=== PATIENT | female | born 1950 | race Caucasian/White ===

== ENCOUNTER 2022-08-12 09:01 | Outpatient (CLI) | payer MEDICARE, BC ==
--- NOTE | 2022-08-12 15:21 | XRAY Report ---
PROCEDURE: Foot 3 View BILAT INDICATIONS: PAIN IN LEFT FOOT TECHNIQUE: 3 views of the foot were acquired. COMPARISON: None FINDINGS: Bones: No fractures or dislocations. No suspicious bony lesions. There is moderate scattered IP de generative narrowing. Osteophytes are present. Mild midfoot degenerative change. Soft tissues: No tibiotalar joint effusion. Achilles tendon appears normal. IMPRESSION: Scattered IP and midfoot arthritic changes. Reviewed by: Kalani Cummins MD on 08/12/2022 3:19 PM PDT Approved by: Kalani Cummins MD on 08/12/2022 3:19 PM PDT Station ID: [id number]
== END 2022-08-12 09:02 | disposition home or self-care (01) ==
LOC: DI.S 09:01
PROVIDERS: ATTEND Nurse Practitioner Family
DX: M19.072 Primary osteoarthritis, left ankle and foot (principal)

== ENCOUNTER 2023-02-17 13:16 | Outpatient (CLI) | payer MEDICARE, BC ==
--- NOTE | 2023-02-17 15:48 | Ultrasound Report ---
PROCEDURE: Pelvic w/Transvaginal INDICATIONS: OVARIAN CYST TECHNIQUE: Real-time scanning was performed of the pelvic organs, with image documentation. Additional endovagi nal scanning was necessary due to incomplete visualization of the adnexal and endometrial structures by transabdominal scanning. COMPARISON: None. FINDINGS: Uterus: Uterus is anteverted and normal in size at 5.2 x 4.0 x 2.6 cm. The myometrium is homogeneou s. The endometrium measures 3.9 mm in combined thickness. Fluid is noted in the endometrial canal. Complex appearance of nabothian cyst is present with calcifications. Ovaries: The right ovary measures 6.2 x 2.9 x 3.8 cm, with a calculated ovarian volume of 34.4 cc. The left ovary measures 1.9 x 1.6 x 1.1 cm, with a calculated ovarian volume of 1.8 cc. There several foci of decreased echogenicity within the right ovary largest measuring 4.1 x 3.5 x 3.3 cm. There is no increased vascularity. Internal septations are noted. Other: No pathologic free abdominal or pelvic fluid. IMPRESSION: Endometrial canal fluid as above. This is overall nonspecific. However, given patient's age, clinical correlation is recommended. Multiple ovarian cysts on the right. Some appearing septated. While these could represent simple cyst , given age, short interval imaging follow-up is recommended. However, it is noted according to histo ry, an upcoming hysterectomy is scheduled. Reviewed by: Kalani Cummins MD on 02/17/2023 3:47 PM PDT Approved by: Kalani Cummins MD on 02/17/2023 3:47 PM PDT Station ID: [id number]
== END 2023-02-17 13:17 | disposition home or self-care (01) ==
LOC: DI 13:16
PROVIDERS: ATTEND Obstetrics & Gynecology
DX: Z01.818 Encounter for other preprocedural examination (principal); N83.201 Unspecified ovarian cyst, right side; N88.8 Other specified noninflammatory disorders of cervix uteri
CPT/HCPCS: 93005

== ENCOUNTER 2023-02-17 13:20 | Outpatient (CLI) | payer MEDICARE, BC | END 2023-02-17 13:21 | disposition home or self-care (01) | LOC: RT 13:20 | PROVIDERS: ATTEND Obstetrics & Gynecology | DX: Z53.9 Procedure and treatment not carried out, unspecified reason (principal) ==

== ENCOUNTER 2023-08-17 11:31 | Outpatient (CLI) | payer MEDICARE, BC ==
[2023-08-17 12:27] LABS: CREATININE 0.5 mg/dL (0.6-1.3)
[2023-08-17 15:13] LABS: CALCIUM 9.3 mg/dL (8.5-10.3)
== END 2023-08-17 11:32 | disposition home or self-care (01) ==
LOC: LAB 11:31
PROVIDERS: ATTEND Surgery
DX: C19 Malignant neoplasm of rectosigmoid junction (principal); R97.0 Elevated carcinoembryonic antigen [CEA]
CPT/HCPCS: 36415; 80048; 82378; 82565; 83540; 84466

== ENCOUNTER 2023-08-21 08:57 | Outpatient (CLI) | payer MEDICARE, BC ==
[2023-08-21 09:10] LABS: BASOPHILS % (AUTO) 0.6 %; EOSINOPHILS # (AUTO) 0.1 10^3/uL (0.0-0.7); EOSINOPHILS % (AUTO) 2.4 %; HGB - HEMOGLOBIN 13.6 g/dL (12.0-16.0); LYMPHOCYTES # (AUTO) 1.9 10^3/uL (1.5-3.5); MEAN CORPUSCULAR HEMOGLOBIN 30.8 pg (27.0-31.0); MEAN CORPUSCULAR HGB CONC 33.2 g/dL (32.0-36.0); MONOCYTES # (AUTO) 0.3 10^3/uL (0.0-1.0); MONOCYTES % (AUTO) 5.5 %; NEUTROPHILS # (AUTO) 2.6 10^3/uL (1.5-6.6); NEUTROPHILS % (AUTO) 52.1 %; PLT - PLATELET COUNT 273 10^3/uL (130-450); RED BLOOD COUNT 4.41 10^6/uL (4.20-5.40); RED CELL DISTRIBUTION WIDTH 13.3 % (12.0-15.0); WHITE BLOOD COUNT 4.9 x10^3/uL (4.8-10.8)
== END 2023-08-21 08:58 | disposition home or self-care (01) ==
LOC: LAB 08:57
PROVIDERS: ATTEND Surgery
DX: C18.7 Malignant neoplasm of sigmoid colon (principal)
CPT/HCPCS: 36415; 85025

== ENCOUNTER → 2024-01-16 | Outpatient (CLI) | payer MEDICARE, BC | LOC: PC 08:00 | PROVIDERS: ATTEND Nurse Practitioner Adult Health | DX: Z51.5 Encounter for palliative care (principal); G43.909 Migraine, unspecified, not intractable, without status migrainosus; M62.81 Muscle weakness (generalized); R63.4 Abnormal weight loss; R63.0 Anorexia; R43.9 Unspecified disturbances of smell and taste; R10.9 Unspecified abdominal pain; R14.0 Abdominal distension (gaseous); R11.0 Nausea; R14.3 Flatulence; R41.89 Other symptoms and signs involving cognitive functions and awareness; R53.83 Other fatigue; K59.03 Drug induced constipation; K52.1 Toxic gastroenteritis and colitis; T45.1X5A Adverse effect of antineoplastic and immunosuppressive drugs, initial encounter; C18.7 Malignant neoplasm of sigmoid colon; Z79.899 Other long term (current) drug therapy | CPT/HCPCS: 99215 ==

== ENCOUNTER 2024-02-11 08:00 | Outpatient (CLI) | payer MEDICARE, BC | END 2024-02-11 23:59 | disposition home or self-care (01) | LOC: PC 08:00 | PROVIDERS: ATTEND Nurse Practitioner Adult Health | DX: Z51.5 Encounter for palliative care (principal); C18.7 Malignant neoplasm of sigmoid colon; G43.909 Migraine, unspecified, not intractable, without status migrainosus | CPT/HCPCS: 99426 ==

== ENCOUNTER 2024-03-12 08:00 | Outpatient (CLI) | payer MEDICARE, BC | END 2024-03-12 23:59 | disposition home or self-care (01) | LOC: PC 08:00 | PROVIDERS: ATTEND Nurse Practitioner Adult Health | DX: Z51.5 Encounter for palliative care (principal); C18.7 Malignant neoplasm of sigmoid colon; G43.909 Migraine, unspecified, not intractable, without status migrainosus | CPT/HCPCS: 99426 ==

== ENCOUNTER 2024-03-22 10:30 | Outpatient (CLI) | payer MEDICARE, BC | END 2024-03-22 23:59 | disposition home or self-care (01) | LOC: PC 10:30 | PROVIDERS: ATTEND Nurse Practitioner Adult Health | DX: Z51.5 Encounter for palliative care (principal); C18.7 Malignant neoplasm of sigmoid colon; K91.89 Other postprocedural complications and disorders of digestive system; R53.83 Other fatigue; Z90.49 Acquired absence of other specified parts of digestive tract; F41.9 Anxiety disorder, unspecified; K52.89 Other specified noninfective gastroenteritis and colitis | CPT/HCPCS: 99215 ==

== ENCOUNTER 2024-04-24 10:11 | Outpatient (CLI) | payer MEDICARE, BC ==
[2024-04-24 10:56] LABS: FERRITIN 17.3 ng/mL (11.0-306.8)
== END 2024-04-24 10:12 | disposition home or self-care (01) ==
LOC: LAB 10:11
PROVIDERS: ATTEND Naturopath
DX: D50.9 Iron deficiency anemia, unspecified (principal)
CPT/HCPCS: 36415; 82728; 83540; 84466

== ENCOUNTER 2024-06-19 08:00 | Outpatient (CLI) | payer MEDICARE, BC | END 2024-06-19 23:59 | disposition home or self-care (01) | LOC: PC 08:00 | PROVIDERS: ATTEND Nurse Practitioner Adult Health | DX: Z51.5 Encounter for palliative care (principal); R53.83 Other fatigue; G62.0 Drug-induced polyneuropathy; T45.1X5S Adverse effect of antineoplastic and immunosuppressive drugs, sequela; Z92.21 Personal history of antineoplastic chemotherapy; Z85.038 Personal history of other malignant neoplasm of large intestine; Z90.49 Acquired absence of other specified parts of digestive tract; Z63.4 Disappearance and death of family member; Z63.8 Other specified problems related to primary support group; Z95.828 Presence of other vascular implants and grafts; K91.89 Other postprocedural complications and disorders of digestive system; F41.9 Anxiety disorder, unspecified; Z79.899 Other long term (current) drug therapy | CPT/HCPCS: 99215 ==

== ENCOUNTER 2024-08-07 09:28 | Outpatient (CLI) | payer MEDICARE, BC ==
[2024-08-07 09:39] LABS: BASOPHILS % (AUTO) 0.8 %; EOSINOPHILS # (AUTO) 0.1 10^3/uL (0.0-0.7); EOSINOPHILS % (AUTO) 3.3 %; HGB - HEMOGLOBIN 12.2 g/dL (12.0-16.0); LYMPHOCYTES # (AUTO) 1.6 10^3/uL (1.5-3.5); LYMPHOCYTES % (AUTO) 39.3 %; MEAN CORPUSCULAR HEMOGLOBIN 31.8 pg (27.0-31.0); MEAN CORPUSCULAR HGB CONC 33.9 g/dL (32.0-36.0); MEAN CORPUSCULAR VOLUME 93.8 fL (81.0-99.0); MEAN PLATELET VOLUME 8.9 fL (7.9-10.8); MONOCYTES # (AUTO) 0.2 10^3/uL (0.0-1.0); MONOCYTES % (AUTO) 5.3 %; PLT - PLATELET COUNT 225 10^3/uL (130-450); RED BLOOD COUNT 3.84 10^6/uL (4.20-5.40); RED CELL DISTRIBUTION WIDTH 13.3 % (12.0-15.0); WHITE BLOOD COUNT 3.9 x10^3/uL (4.8-10.8)
[2024-08-07 09:56] LABS: CRP HIGH SENSITIVITY 0.96 mg/L
[2024-08-07 10:15] LABS: FERRITIN 33.7 ng/mL (11.0-306.8)
== END 2024-08-07 09:29 | disposition home or self-care (01) ==
LOC: LAB 09:28
PROVIDERS: ATTEND Naturopath
DX: C18.9 Malignant neoplasm of colon, unspecified (principal); D50.9 Iron deficiency anemia, unspecified; G62.0 Drug-induced polyneuropathy; M81.0 Age-related osteoporosis without current pathological fracture
CPT/HCPCS: 36415; 82306; 82728; 83540; 84466; 85025; 85651; 86141